=== PATIENT | female | born 1955 | race Caucasian/White ===

== ENCOUNTER → 2016-09-26 | Outpatient (CLI) | payer MEDICAID ==
[~2016-09-26] MED LIST: ASA325 MG PO; ATIVAN-DPS0.5 MG PO; CELEBREX200 MG PO; DULERA 100/58.8 GM IH; FLEXERIL-DPS10 MG PO; MAALOX DPS30 ML PO; MILK OF MAGNESI10 ML PO; MIRALAX PACKET17 GM PO; OXYGEN NS; PERCOCET 5-3251 EACH PO; PROAIR RESPICL90 MCG IH; PROTONIX40 MG PO; SENOKOT S1 TAB PO; TUMS DPS500 MG PO; TYLENOL DPS325 MG PO; ULTRAM DPS50 MG PO; VISTARIL-DPS50 MG PO; ZOLOFT DPS100 MG PO
== END | disposition home or self-care (01) ==
LOC: PTH.S 08:02
DX: Z01.818 Encounter for other preprocedural examination (principal); M16.11 Unilateral primary osteoarthritis, right hip; J44.9 Chronic obstructive pulmonary disease, unspecified; R94.31 Abnormal electrocardiogram [ECG] [EKG]; I49.9 Cardiac arrhythmia, unspecified; Z79.2 Long term (current) use of antibiotics